=== PATIENT | male | born 1995 | race Caucasian/White ===

== ENCOUNTER 2021-01-13 07:22 | Emergency (ER) | payer SELFPAY ==
[~2021-01-13] VITALS: Ht 160 cm; Wt 56.7 kg
--- NOTE | 2021-01-13 07:22 | NUR ---
PT BIB [facility] 60 AND [employer] OFFICERS FROM HOME C/O SUICIDAL IDEATION "SUBRAMANIAN ON THE LEFT WRIST" PT IS AAOX3, PT ADMITTED TO DRINKING ALCOHOL LAST NIGHT, NOT IN RESPIRATORY DISTRESS, V/S STABLE, KEPT RESTED AND COMFORTABLE. SITTER AT BEDSIDE.
--- NOTE | 2021-01-13 07:28 | NUR ---
AT BEDSIDE FOR EVAL.
--- NOTE | 2021-01-13 07:46 | NUR ---
ER PHLEB AT BEDSIDE FOR BLOOD DRAW.
[2021-01-13 08:00] LABS: BASOPHILS # (AUTO) 0.1 /CMM (0.0-0.2); BASOPHILS % (AUTO) 0.9 % (0.0-2.0); EOSINOPHILS % (AUTO) 2.3 % (0.0-6.0); HEMATOCRIT 45 % (39-51); HEMOGLOBIN 15.6 g/dL (13.5-17.5); LYMPHOCYTES # (AUTO) 3.5 /CMM (0.8-4.8); LYMPHOCYTES % (AUTO) 38.3 % (20.0-44.0); MEAN CORPUSCULAR HGB CONC 35 g/dl (31.0-36.0); MEAN CORPUSCULAR VOLUME 91 fL (80-96); MONOCYTES # (AUTO) 0.7 /CMM (0.1-1.30); MONOCYTES % (AUTO) 7.3 % (2.0-12.0); NEUTROPHILS # (AUTO) 4.6 /CMM (1.8-8.9); NEUTROPHILS % (AUTO) 51.2 % (43.0-81.0); PLATELET COUNT (AUTO) 268 /CMM (150-450); RED BLOOD CELL COUNT(AUTO) 5.01 MIL/uL (4.5-6.0)
--- NOTE | 2021-01-13 08:02 | NUR ---
CRISS SPECIMEN COLLECTED AND SENT TO LAB.
[2021-01-13 08:07] LABS: CALCIUM, SERUM 8.7 mg/dL (8.5-10.1); CARBON DIOXIDE 23 mmol/L (21-32); CHLORIDE 104 mmol/L (98-107); GLUCOSE 103 mg/dL (74-106); POTASSIUM 3.6 mmol/L (3.5-5.1); SODIUM SERUM 142 mmol/L (136-145); UREA NITROGEN, BLOOD 9 mg/dL (7-18)
[2021-01-13 08:12] LABS: ALANINE AMINOTRANSFERASE 31 U/L (12-78); ALBUMIN 4.5 g/dL (3.4-5.0); ALCOHOL, BLOOD 165 mg/dL (0-0); ALKALINE PHOSPHATASE 87 U/L (46-116); ASPARTATE AMINOTRANSFERASE 21 U/L (15-37); BILIRUBIN,DIRECT 0.1 mg/dL (0.0-0.2); BILIRUBIN,TOTAL 0.3 mg/dL (0.2-1.0); TOTAL PROTEIN, SERUM 8.7 g/dL (6.4-8.2)
[2021-01-13 08:13] LABS: ACETAMINOPHEN < 2 ug/ml (10-30)
[2021-01-13 08:30] LABS: BILIRUBIN,URINE Negative (NEGATIVE); COLOR,URINE YELLOW (YELLOW); LEUKOCYTE ESTERASE ,URINE Negative (NEGATIVE); NITRITE, URINE Negative (NEGATIVE); PH,URINE 6.5 (5.0-8.0); PROTEIN,URINE Negative (NEGATIVE); UGLUCOSE Negative (NEGATIVE)
--- NOTE | 2021-01-13 10:22 | NUR ---
SW AT BEDSIDE FOR EVAL.
--- NOTE | 2021-01-13 11:25 | NUR ---
PT WAS CLEARED BY WOOD GRAINER THAT PT IS NOT SUICIDAL.
--- NOTE | 2021-01-13 11:27 | NUR ---
PT CLEARED FOR DISCHARGE. PT VERBALIZED WHEN ASKED THAT HE IS NOT SUICIDAL NOR HOMICIDAL. DEPARTMENT ASSISTANT SAW PT AND RESOURCES PROVIDED BY DEPARTMENT ASSISTANT.
[2021-01-13 11:29] VITALS: BP 123/70
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
== END 2021-01-13 12:00 | disposition home or self-care (01) ==
LOC: ER 07:22
DX: R45.851 Suicidal ideations (principal); Z91.5 Personal history of self-harm; Z72.89 Other problems related to lifestyle; S40.812A Abrasion of left upper arm, initial encounter; X78.9XXA Intentional self-harm by unspecified sharp object, initial encounter; Y92.89 Other specified places as the place of occurrence of the external cause
CPT/HCPCS: 36415; 80048; 80076; 80143; 80307; 80320; 81003; 85025; 87426; 99285; C9803; G0480